=== PATIENT | male | born 1990 | race Caucasian/White ===

== ENCOUNTER 2016-09-26 23:00 | Emergency (ER) | payer OTHER ==
[2016-09-26 23:06] VITALS: BP 115/72; PULSE 72; RESP 16; TEMP 97.5; O2SAT 96
--- NOTE | 2016-09-27 00:28 | EDPHY ---
H & P Stated Complaint: hit head on a door, - loc, scalp lac Source: Patient Exam Limitations: No limitations - Personal History Current Tetanus Diphtheria and Acellular Pertussis (TDAP): Yes - Medical/Surgical History Other PMH: gout, shingles. past hx fx L collarbone - Social History Smoking Status: Never smoked HPI/ROS: CHIEF COMPLAINT: Scalp laceration HISTORY OF PRESENT ILLNESS: Patient complains of scalp laceration. He was working on a van, building a camper van. He stood up and struck his head on the corner of the door. This happened within the past 2 hours. No loss of conscious. No headache. Pain is minimal and pertains only to the laceration. No neck pain. No injury elsewhere. The bleeding is maintained with pressure. No nausea or vomiting. No visual changes. No confusion or dizziness. No modifying factors. No other associated complaints. TIME OF INJURY: Less than 2 hours prior to arrival TETANUS STATUS: Up-to-date due to travel out of the country recently REVIEW OF SYSTEMS: Ten systems reviewed and are negative unless otherwise noted in the HPI EXAMINATION General Appearance: Alert, no distress Head: normocephalic. No depression or hematoma. There is a laceration on the top of the scalp with no bleeding no foreign body. Cardiovascular: Pulses normal throughout. Brisk cap refill Neurological: GCS 15. Cranial nerves 2-12 grossly intact. A&O, sensory symmetric, strength symmetric. Normal steady gait. No pronator drift. No dysmetria. Skin: Warm and dry. There is a 2 cm laceration on top of the scalp. No foreign body. No exposure of the gala. Extremities: Nontender, no pedal edema DIFFERENTIAL DIAGNOSES: Including but not limited to scalp fracture, closed-head injury, concussion, intracranial injury, fracture MDM: 12:25 a.m. Scalp laceration without complication. No evidence of intracranial abnormality. [place] CT head rules score is 0. No CT scan recommended are indicated. I have anesthetized and closed the wound with marina without complication. Return here for staple removal in 7-10 days for return sooner for signs of infection as discussed. Return here for worsening headache, changes in vision, vomiting, neck pain or stiffness. He is comfortable with this plan and discharged home stable condition PROCEDURE: Laceration repair Consent: Verbal Location: Scalp Length of repair: 2 cm Complexity: Simple Layer involvement: Single Anesthesia: Local, 1% lidocaine plain, 5 mL Irrigation: Extensive Debridement: None Procedure description: Following good anesthesia, the wound was copiously irrigated. Wound bed was explored and there is no foreign body noted. There was no involvement of the gala aponeurosis of. Wound borders were approximated well with good hemostasis. Tolerated well without complication. Suture/Staple material: Marina, 3 Wound care: Routine as discussed Suture/Staple removal: 7-10 Days SUTURE STAPLE REMOVAL: 7-10 days ED Precautions: Worsening pain. Erythema, edema, cyanosis, pallor, paresthesia or anesthesia. SUPERVISION: This patient was independently evaluated without direct examination by the attending physician. Case was discussed with attending physician. (Kale Browning) Constitutional: Initial Vital Signs Temperature (C) 97.5 F 09/26/16 23:03 Heart Rate 72 09/26/16 23:03 Respiratory Rate 16 09/26/16 23:03 Blood Pressure 115/72 09/26/16 23:03 O2 Sat (%) 96 09/26/16 23:03 Allergies/Adverse Reactions: doxycycline Allergy (Verified 09/26/16 23:03) malaria drug Allergy (Uncoded 12/08/15 18:25) Home Medications: Medication Instructions Recorded Allopurinol 09/26/16 Medical Decision Making Other Provider: PHYSICIAN DOCUMENTATION: The patient was evaluated and managed by the Physician Dust Box Tender. My co- signature indicates that I have reviewed this chart and I agree with the findings and plan of care as documented. I am the secondary supervising physician. (Alpa Benedict) Departure - Departure Disposition: Home, Routine, Self-Care Clinical Impression: Scalp laceration Qualifiers: Encounter type: initial encounter Qualified Code(s): S01.01XA - Laceration without foreign body of scalp, initial encounter Condition: Good Instructions: Care For Your Stitches (ED), Laceration (ED) Additional Instructions: 1. Daily wound care as discussed with bacitracin once daily 2. Return here in 7-10 days for staple removal 3. Return here for any signs of infection as discussed 4. Return here for worsening headache, neck pain or stiffness, fever, changes in vision, vomiting Referrals: NONE *PRIMARY CARE P,. [Primary Care Provider] - As per Instructions Andrea Bergman MD [Medical Doctor] - As per Instructions Stand Alone Forms: Work Excuse
== END 2016-09-27 00:47 | disposition home or self-care (01) ==
PROC: 0HQ0XZZ Repair Scalp Skin, External Approach (ICD-10-PCS; principal; 2016-09-26)
DX: S01.01XA Laceration without foreign body of scalp, initial encounter (principal); W22.8XXA Striking against or struck by other objects, initial encounter; Y99.8 Other external cause status; Y93.89 Activity, other specified